=== PATIENT | female | born 1980 | race Caucasian/White ===

== ENCOUNTER 2020-01-09 12:17 | Inpatient (IN) ==
[2020-01-09 12:50] LABS: Basophils % 0.7 %; Eosinophils # 0.2 K/mcL (0.0-0.6); Hematocrit 46.1 % (35.3-44.9); Hemoglobin 15.3 g/dL (11.5-15.4); Immature Granulocytes % 0.2 % (0-4); Lymphocytes # 1.2 K/mcL (0.6-4.6); Lymphocytes % 19.8 %; Mean Corpuscular HGB Conc 33.2 g/dL (31.6-35.5); Mean Corpuscular Hemoglobin 31.4 pg (28.0-33.3); Mean Corpuscular Volume 94.5 fL (83.0-100.0); Mean Platelet Volume 10.8 fL (9.4-12.4); Monocytes # 0.7 K/mcL (0.0-1.3); Monocytes % 12.2 %; Neutrophils # 3.7 K/mcL (1.6-8.9); Platelet Count 149 K/mcL (140-400); Red Blood Count 4.88 M/mcL (3.82-4.97); Red Cell Distribution Width 13.1 % (11.5-14.5); Segmented Neutrophils % 63.1 %; White Blood Count 5.8 K/mcL (4.3-11.1)
[2020-01-09 12:59] LABS: Bilirubin,Urine Small (Negative); Blood,Urine Negative (Negative); Clarity,Urine Clear (Clear); Color,Urine Dark Yellow (Yellow); Glucose,Urine (UA) Normal (Normal); Ketones,Urine Negative (Negative); Leukocyte Esterase,Urine Trace (Negative); Nitrite,Urine Negative (Negative); Protein,Urine 30 mg/dL (Neg-Trace); Specific Gravity,Urine 1.022 (1.010-1.025)
[2020-01-09 12:59] LABS: Prothrombin Time 11.3 Seconds (9.4-12.1)
[2020-01-09 13:12] LABS: RBC,Urine 0-3 per hpf (0-3); Squamous Epithelial Cell,Urine Few per lpf (None-Few); WBC,Urine 0-3 per hpf (0-3)
[2020-01-09 13:12] LABS: Alanine Aminotransferase 415 Units/L (7-52); Albumin 4.2 g/dL (3.5-5.7); Albumin/Globulin Ratio 1.1 (1.1-2.2); Alkaline Phosphatase 113 Units/L (34-104); Aspartate Amino Transferase 577 Units/L (13-39); BUN/Creatinine Ratio 16 (6-26); Bilirubin,Direct 0.5 mg/dL (0.0-0.2); Bilirubin,Indirect 0.9 mg/dL (0.0-1.0); Bilirubin,Total 1.4 mg/dL (0.3-1.0); Blood Urea Nitrogen 8 mg/dL (6-20); Calcium 9.2 mg/dL (8.6-10.3); Carbon Dioxide 25 mEq/L (23-29); Chloride 100 mEq/L (98-107); Globulin 3.9 g/dL (2.4-3.5); Glucose 115 mg/dL (70-105); Lipase 18 Units/L (11-82); Osmolality,Calculated 277 (280-300); Potassium 3.8 mEq/L (3.5-5.1); Sodium 134 mEq/L (136-145); Total Protein 8.1 g/dL (6.4-8.9); Troponin I < 0.03 ng/mL (< 0.04); eGFR For African Americans > 60 (> 60); eGFR For Non-African Americans > 60 (> 60)
[2020-01-09 13:13] LABS: Bacteria,Urine None Seen per hpf (None-Few)
[2020-01-09] MEDS ORDERED: Morphine Sulfate 2 MG/ML SYRINGE IVP ONE ×2 (14:03→21:21)
[2020-01-09] MEDS ORDERED: Ondansetron 4 MG/2 ML VIAL ONE (14:15)
[2020-01-09] MEDS ORDERED: Naloxone 0.4 MG/ML INJ IVP PRN (14:27)
[2020-01-09 14:34] LABS: Hepatitis B Surface Antigen Nonreactive (Nonreactive)
[2020-01-09 15:04] LABS: Hepatitis B Core IgM Nonreactive (Nonreactive)
[2020-01-09 15:05] LABS: Hepatitis A Antibody IgM Nonreactive (Nonreactive)
[2020-01-09 15:13] LABS: Digoxin < 0.3 ng/mL (0.8-2.0)
[2020-01-09] MEDS ORDERED: *HR* LORazepam 2 MG/ML VIAL IVP PRN ×2 (17:08)
[2020-01-09] MEDS ORDERED: Ketorolac 15 MG/ML VIAL IVP PRN (17:09)
[2020-01-09] MEDS ORDERED: Acetylcysteine 8,800 MG in D5% in Water 250 ML IVC ONE (17:30)
[2020-01-09 17:33] LABS: Hepatitis C Virus Antibody Reactive (Nonreactive)
[2020-01-09 17:45] LABS: Acetaminophen < 10 mcg/mL (10-20)
[2020-01-09] MEDS ORDERED: Acetylcysteine 2,900 MG in D5% in Water 500 ML IVC ONE (18:30)
[2020-01-09] MEDS: Thiamine (B-1) 100 MG, Folic Acid 1 MG, MVI, adult with vitamin K 10 ML in 0.9 % Sodi... IVPB SCH (18:58)
[2020-01-09] MEDS: Ondansetron ODT 4 MG TAB.RAPDIS SL PRN (19:53)
[2020-01-09] MEDS ORDERED: *HR* LORazepam 2 MG/ML VIAL IVP ONE (21:23)
[2020-01-09] MEDS ORDERED: Ondansetron 4 MG/2 ML VIAL IVP ONE (21:49)
[2020-01-09] MEDS ORDERED: Acetylcysteine 5,900 MG in D5% in Water 1,000 ML IVC ONE (22:30)
[2020-01-09 23:14] LABS: Alanine Aminotransferase 363 Units/L (7-52); Albumin 3.9 g/dL (3.5-5.7); Albumin/Globulin Ratio 1.1 (1.1-2.2); Alkaline Phosphatase 96 Units/L (34-104); Aspartate Amino Transferase 492 Units/L (13-39); BUN/Creatinine Ratio 16 (6-26); Bilirubin,Total 2.6 mg/dL (0.3-1.0); Blood Urea Nitrogen 8 mg/dL (6-20); Calcium 8.9 mg/dL (8.6-10.3); Carbon Dioxide 24 mEq/L (23-29); Chloride 98 mEq/L (98-107); Globulin 3.4 g/dL (2.4-3.5); Glucose 135 mg/dL (70-105); Osmolality,Calculated 274 (280-300); Potassium 3.1 mEq/L (3.5-5.1); Sodium 132 mEq/L (136-145); Total Protein 7.3 g/dL (6.4-8.9); eGFR For African Americans > 60 (> 60); eGFR For Non-African Americans > 60 (> 60)
[2020-01-09] MEDS: *HR* Heparin 5,000 UNIT/ML VIAL SQ SCH (23:46)
[2020-01-10 01:04] LABS: Basophils % 0.3 %; Eosinophils % 2.2 %; Mean Corpuscular Volume 93.9 fL (83.0-100.0)
[2020-01-10 01:06] LABS: Eosinophils # 0.1 K/mcL (0.0-0.6); Hematocrit 41.3 % (35.3-44.9); Hemoglobin 13.9 g/dL (11.5-15.4); Immature Granulocytes % 0.5 % (0-4); Immature Platelets 7.4 % (1.1-6.1); Lymphocytes # 1.2 K/mcL (0.6-4.6); Lymphocytes % 18.1 %; Mean Corpuscular HGB Conc 33.7 g/dL (31.6-35.5); Mean Corpuscular Hemoglobin 31.6 pg (28.0-33.3); Mean Platelet Volume 11.5 fL (9.4-12.4); Monocytes # 0.8 K/mcL (0.0-1.3); Monocytes % 12.8 %; Neutrophils # 4.2 K/mcL (1.6-8.9); Platelet Count 110 K/mcL (140-400); Red Cell Distribution Width 12.8 % (11.5-14.5); Segmented Neutrophils % 66.1 %; White Blood Count 6.4 K/mcL (4.3-11.1)
[2020-01-10 01:22] LABS: Alanine Aminotransferase 348 Units/L (7-52); Albumin 3.7 g/dL (3.5-5.7); Albumin/Globulin Ratio 1.1 (1.1-2.2); Alkaline Phosphatase 88 Units/L (34-104); Aspartate Amino Transferase 473 Units/L (13-39); BUN/Creatinine Ratio 17 (6-26); Bilirubin,Total 2.4 mg/dL (0.3-1.0); Blood Urea Nitrogen 8 mg/dL (6-20); Calcium 8.8 mg/dL (8.6-10.3); Carbon Dioxide 23 mEq/L (23-29); Chloride 97 mEq/L (98-107); Globulin 3.4 g/dL (2.4-3.5); Glucose 141 mg/dL (70-105); Magnesium 1.5 mg/dL (1.6-2.6); Osmolality,Calculated 271 (280-300); Potassium 3.1 mEq/L (3.5-5.1); Sodium 130 mEq/L (136-145); Total Protein 7.1 g/dL (6.4-8.9); eGFR For African Americans > 60 (> 60); eGFR For Non-African Americans > 60 (> 60)
[2020-01-10] MEDS: Ondansetron ODT 4 MG TAB.RAPDIS SL PRN (04:48)
[2020-01-10] MEDS: *HR* Heparin 5,000 UNIT/ML VIAL SQ SCH ×3 (06:21→20:37)
[2020-01-10] MEDS: Aspirin Enteric Coated 81 MG Tablet PO SCH (08:13)
[2020-01-10] MEDS: Metoprolol 100 MG TABLET PO SCH (08:13)
[2020-01-10] MEDS: *HR* LORazepam 2 MG/ML VIAL IVP PRN ×3 (08:22→20:52)
[2020-01-10 13:59] LABS: % Iron Saturation 96 % (15-50); Iron 344 mcg/dL (50-170); Transferrin 256 mg/dL (203-362)
[2020-01-10 14:17] LABS: Ferritin 982 ng/mL (10-120)
[2020-01-10] MEDS: Thiamine (B-1) 100 MG, Folic Acid 1 MG, MVI, adult with vitamin K 10 ML in 0.9 % Sodi... IVPB SCH (17:09)
[2020-01-10] MEDS: *HR* OxyCODONE Immed Rel 5 MG TABLET PO PRN ×2 (18:08→22:08)
[2020-01-10] MEDS: Magnesium Oxide 400 MG TABLET PO SCH (20:40)
[2020-01-10] MEDS: Nicotine 2 MG GUM BC PRN ×2 (20:40→23:58)
[2020-01-11] MEDS: *HR* LORazepam 2 MG/ML VIAL IVP PRN ×3 (00:52→20:31)
[2020-01-11 04:58] LABS: Hematocrit 37.8 % (35.3-44.9); Hemoglobin 12.1 g/dL (11.5-15.4); Immature Platelets 8.4 % (1.1-6.1); Mean Corpuscular Hemoglobin 31.2 pg (28.0-33.3); Mean Corpuscular Volume 97.4 fL (83.0-100.0); Mean Platelet Volume 11.6 fL (9.4-12.4); Red Blood Count 3.88 M/mcL (3.82-4.97); Red Cell Distribution Width 12.9 % (11.5-14.5); White Blood Count 4.3 K/mcL (4.3-11.1)
[2020-01-11] MEDS: *HR* Heparin 5,000 UNIT/ML VIAL SQ SCH ×3 (05:00→20:41)
[2020-01-11 05:21] LABS: Alanine Aminotransferase 331 Units/L (7-52); Albumin 3.5 g/dL (3.5-5.7); Albumin/Globulin Ratio 1.3 (1.1-2.2); Alkaline Phosphatase 79 Units/L (34-104); Aspartate Amino Transferase 544 Units/L (13-39); BUN/Creatinine Ratio 17 (6-26); Bilirubin,Total 3.2 mg/dL (0.3-1.0); Blood Urea Nitrogen 8 mg/dL (6-20); Calcium 8.6 mg/dL (8.6-10.3); Carbon Dioxide 27 mEq/L (23-29); Chloride 103 mEq/L (98-107); Globulin 2.7 g/dL (2.4-3.5); Glucose 82 mg/dL (70-105); Magnesium 1.8 mg/dL (1.6-2.6); Osmolality,Calculated 273 (280-300); Potassium 4.2 mEq/L (3.5-5.1); Sodium 133 mEq/L (136-145); Total Protein 6.2 g/dL (6.4-8.9); eGFR For African Americans > 60 (> 60); eGFR For Non-African Americans > 60 (> 60)
[2020-01-11] MEDS: Metoprolol 100 MG TABLET PO SCH (08:12)
[2020-01-11] MEDS: Aspirin Enteric Coated 81 MG Tablet PO SCH (08:16)
[2020-01-11] MEDS: *HR* OxyCODONE Immed Rel 5 MG TABLET PO PRN ×4 (08:17→23:01)
[2020-01-11] MEDS: Magnesium Oxide 400 MG TABLET PO SCH ×2 (08:17→19:59)
[2020-01-11] MEDS: Ondansetron ODT 4 MG TAB.RAPDIS SL PRN (10:55)
[2020-01-11] MEDS ORDERED: Lidocaine -MPF 2% 2 ML VIAL ONE (12:31)
[2020-01-11] MEDS ORDERED: *HR* Propofol 200 MG/20 ML VIAL IVP ONE ×2 (12:31→13:09)
[2020-01-11] MEDS ORDERED: *HR* Promethazine 25 MG/ML VIAL IVP STA (12:38)
[2020-01-11] MEDS ORDERED: Famotidine 20 MG/2 ML VIAL ONE (13:13)
[2020-01-11] MEDS: Thiamine (B-1) 100 MG, Folic Acid 1 MG, MVI, adult with vitamin K 10 ML in 0.9 % Sodi... IVPB SCH (18:20)
[2020-01-11] MEDS: Nicotine 2 MG GUM BC PRN (23:01)
[2020-01-12] MEDS: *HR* LORazepam 2 MG/ML VIAL IVP PRN ×2 (01:57→10:35)
[2020-01-12 03:38] LABS: Albumin 3.5 g/dL (3.5-5.7); Albumin/Globulin Ratio 1.2 (1.1-2.2); Bilirubin,Direct 1.5 mg/dL (0.0-0.2); Bilirubin,Total 2.5 mg/dL (0.3-1.0); Globulin 2.9 g/dL (2.4-3.5); Total Protein 6.4 g/dL (6.4-8.9)
[2020-01-12] MEDS: *HR* OxyCODONE Immed Rel 5 MG TABLET PO PRN ×2 (03:40→07:56)
[2020-01-12] MEDS: *HR* Heparin 5,000 UNIT/ML VIAL SQ SCH (06:08)
[2020-01-12] MEDS: Aspirin Enteric Coated 81 MG Tablet PO SCH (07:54)
[2020-01-12] MEDS: Metoprolol 100 MG TABLET PO SCH (07:55)
[2020-01-12] MEDS: Magnesium Oxide 400 MG TABLET PO SCH (07:56)
[2020-01-12] MEDS: Ondansetron ODT 4 MG TAB.RAPDIS SL PRN (07:57)
[2020-01-12] MEDS: Nicotine 2 MG GUM BC PRN (09:51)
[2020-01-12 11:10] VITALS: BP 100/64
[2020-01-12 11:11] LABS: AFP Tumor Marker Non-Pregnant 19 ng/mL (0-9)
[2020-01-12 11:17] LABS: ANA IgG by ELISA NONE DETECTED (None Detected); F-Actin (sm muscle) Ab IgG 30 Units (0-19); Immunoglobulin A (CELIAC) 346 mg/dL (68-408)
[2020-01-13 08:38] LABS: Smooth Muscle Ab Titer IgG 1:20 (<1:20)
[2020-01-13 11:04] LABS: Tissue Transglutaminase IgA <2 U/mL (0-3)
[2020-01-13 11:04] LABS: HCV Quant Interpretation DETECTED (Not Detected); HCV Quant Log 6.07 log IU/mL
[2020-01-15 13:20] LABS: HCV Genotype by Sequencing 1A OR 1B
[2020-01-15 13:22] LABS: HCV Quant Interpretation DETECTED (Not Detected); HCV Quant Log 6.22 log IU/mL
[2020-01-17 14:32] LABS: A1A SZ Specimen WHOLE BLOOD; Alpha-1-Antitrypsin S Allele NEGATIVE; Alpha-1-Antitrypsin Z Allele NEGATIVE
[2020-01-17 14:38] LABS: Alpha-1-Antitrypsin 168 mg/dL (90-200)
== END 2020-01-12 13:33 | disposition home or self-care (01) | DRG 433 ==
LOC: EMEROOARM 12:17 → 3BNU 12:17
PROVIDERS: ADMIT Internal Medicine; ATTEND Internal Medicine
PROC: ENDOEBX (2020-01-11 13:00)

== ENCOUNTER 2020-06-23 09:53 | Inpatient (IN) ==
[2020-06-23] MEDS ORDERED: Naloxone 0.4 MG/ML INJ IVP PRN (13:18)
[2020-06-23] MEDS ORDERED: *HR* Promethazine 25 MG/ML VIAL IM PRN (13:38)
[2020-06-23 14:09] LABS: Hemoglobin 13.3 g/dL (11.5-15.4)
[2020-06-23 14:11] LABS: Basophils # 0.1 K/mcL (0.0-0.2); Basophils % 0.9 %; Eosinophils # 0.2 K/mcL (0.0-0.6); Eosinophils % 4.3 %; Hematocrit 40.1 % (35.3-44.9); Immature Granulocytes % 0.4 % (0-4); Immature Platelets 6.2 % (1.1-6.1); Lymphocytes # 1.3 K/mcL (0.6-4.6); Lymphocytes % 22.8 %; Mean Corpuscular HGB Conc 33.2 g/dL (31.6-35.5); Mean Corpuscular Hemoglobin 30.9 pg (28.0-33.3); Mean Platelet Volume 10.9 fL (9.4-12.4); Monocytes # 0.7 K/mcL (0.0-1.3); Monocytes % 11.6 %; Neutrophils # 3.4 K/mcL (1.6-8.9); Platelet Count 133 K/mcL (140-400); Red Blood Count 4.31 M/mcL (3.82-4.97); Red Cell Distribution Width 13.7 % (11.5-14.5); White Blood Count 5.6 K/mcL (4.3-11.1)
[2020-06-23 14:31] LABS: Alanine Aminotransferase 206 Units/L (7-52); Albumin 3.8 g/dL (3.5-5.7); Albumin/Globulin Ratio 1.2 (1.1-2.2); Alkaline Phosphatase 87 Units/L (34-104); Aspartate Amino Transferase 205 Units/L (13-39); BUN/Creatinine Ratio 14 (6-26); Bilirubin,Total 0.6 mg/dL (0.3-1.0); Blood Urea Nitrogen 7 mg/dL (6-20); Calcium 8.4 mg/dL (8.6-10.3); Carbon Dioxide 20 mEq/L (23-29); Chloride 109 mEq/L (98-107); Globulin 3.2 g/dL (2.4-3.5); Glucose 86 mg/dL (70-105); Magnesium 1.8 mg/dL (1.6-2.6); Osmolality,Calculated 281 (280-300); Phosphorous 2.8 mg/dL (2.7-4.5); Potassium 3.8 mEq/L (3.5-5.1); Sodium 137 mEq/L (136-145); eGFR For African Americans > 60 (> 60); eGFR For Non-African Americans > 60 (> 60)
[2020-06-23] MEDS: 0.9 % Sodium Chloride 1,000 ML IVC SCH (14:41)
[2020-06-23] MEDS ORDERED: Torsemide 20 MG TABLET PO SCH (18:00)
[2020-06-23] MEDS: Metoprolol 100 MG TABLET PO SCH (20:40)
[2020-06-24] MEDS: 0.9 % Sodium Chloride 1,000 ML IVC SCH (03:16)
[2020-06-24 06:01] LABS: Basophils # 0.1 K/mcL (0.0-0.2); Eosinophils # 0.2 K/mcL (0.0-0.6); Hematocrit 40.8 % (35.3-44.9); Hemoglobin 13.4 g/dL (11.5-15.4); Immature Granulocytes % 0.2 % (0-4); Lymphocytes # 1.4 K/mcL (0.6-4.6); Lymphocytes % 28.5 %; Mean Corpuscular HGB Conc 32.8 g/dL (31.6-35.5); Mean Corpuscular Hemoglobin 31.5 pg (28.0-33.3); Mean Platelet Volume 10.6 fL (9.4-12.4); Monocytes # 0.5 K/mcL (0.0-1.3); Monocytes % 9.8 %; Neutrophils # 2.7 K/mcL (1.6-8.9); Platelet Count 142 K/mcL (140-400); Red Blood Count 4.25 M/mcL (3.82-4.97); Red Cell Distribution Width 13.8 % (11.5-14.5); Segmented Neutrophils % 55.5 %; White Blood Count 4.8 K/mcL (4.3-11.1)
[2020-06-24 06:22] LABS: Alanine Aminotransferase 190 Units/L (7-52); Albumin 3.6 g/dL (3.5-5.7); Albumin/Globulin Ratio 1.1 (1.1-2.2); Alkaline Phosphatase 90 Units/L (34-104); Aspartate Amino Transferase 194 Units/L (13-39); BUN/Creatinine Ratio 14 (6-26); Bilirubin,Total 0.9 mg/dL (0.3-1.0); Blood Urea Nitrogen 7 mg/dL (6-20); Calcium 8.6 mg/dL (8.6-10.3); Carbon Dioxide 23 mEq/L (23-29); Chloride 107 mEq/L (98-107); Globulin 3.2 g/dL (2.4-3.5); Glucose 78 mg/dL (70-105); Osmolality,Calculated 281 (280-300); Potassium 4.2 mEq/L (3.5-5.1); Sodium 137 mEq/L (136-145); Total Protein 6.8 g/dL (6.4-8.9); eGFR For African Americans > 60 (> 60); eGFR For Non-African Americans > 60 (> 60)
[2020-06-24] MEDS: Metoprolol 100 MG TABLET PO SCH ×2 (07:55→20:25)
[2020-06-24] MEDS: Torsemide 20 MG TABLET PO SCH (08:01)
[2020-06-24] MEDS: Ondansetron ODT 4 MG TAB.RAPDIS SL PRN (08:51)
[2020-06-24] MEDS ORDERED: Piperacillin/Tazobactam 3.375 GM in 0.9 % Sodium Chloride Mini Bag 100 ML IVPB SCH ×2 (13:00→19:00)
[2020-06-24] MEDS: Pantoprazole 40 MG VIAL IVP SCH (13:07)
[2020-06-24 19:16] LABS: Adenovirus Not Detected (Not Detect); Bordetella Pertussis Not Detected (Not Detect); Chlamydophila pneumoniae Not Detected (Not Detect); Coronavirus 229E Not Detected (Not Detect); Coronavirus HKU1 Not Detected (Not Detect); Coronavirus NL63 Not Detected (Not Detect); Coronavirus OC43 Not Detected (Not Detect); Human Metapneumovirus Not Detected (Not Detect); Human Rhinovirus/Enterovirus DETECTED (Not Detect); Influenza A Subtype 2009 H1 Not Detected (Not Detect); Influenza B Not Detected (Not Detect); Mycoplasma pneumoniae Not Detected (Not Detect); Parainfluenza Virus 1 Not Detected (Not Detect); Parainfluenza Virus 2 Not Detected (Not Detect); Parainfluenza Virus 3 Not Detected (Not Detect); Parainfluenza Virus 4 Not Detected (Not Detect); Respiratory Syncytial Virus Not Detected (Not Detect); SARS-CoV-2 Not Detected (Not Detect)
[2020-06-25] MEDS: Metoprolol 100 MG TABLET PO SCH ×2 (08:15→20:28)
[2020-06-25] MEDS: Pantoprazole 40 MG VIAL IVP SCH (08:16)
[2020-06-25] MEDS: Ondansetron ODT 4 MG TAB.RAPDIS SL PRN (08:20)
[2020-06-26 06:46] LABS: Basophils % 0.5 %; Eosinophils # 0.2 K/mcL (0.0-0.6); Eosinophils % 4.9 %; Hematocrit 40.3 % (35.3-44.9); Hemoglobin 13.3 g/dL (11.5-15.4); Immature Granulocytes % 0.5 % (0-4); Lymphocytes # 1.4 K/mcL (0.6-4.6); Lymphocytes % 33.4 %; Mean Corpuscular Hemoglobin 31.1 pg (28.0-33.3); Mean Corpuscular Volume 94.4 fL (83.0-100.0); Mean Platelet Volume 10.8 fL (9.4-12.4); Monocytes # 0.5 K/mcL (0.0-1.3); Monocytes % 12.4 %; Neutrophils # 2.1 K/mcL (1.6-8.9); Platelet Count 162 K/mcL (140-400); Red Blood Count 4.27 M/mcL (3.82-4.97); Red Cell Distribution Width 13.6 % (11.5-14.5); Segmented Neutrophils % 48.3 %; White Blood Count 4.3 K/mcL (4.3-11.1)
[2020-06-26 07:02] LABS: BUN/Creatinine Ratio 16 (6-26); Blood Urea Nitrogen 10 mg/dL (6-20); Carbon Dioxide 27 mEq/L (23-29); Chloride 105 mEq/L (98-107); Glucose 64 mg/dL (70-105); Magnesium 1.8 mg/dL (1.6-2.6); Osmolality,Calculated 283 (280-300); Potassium 3.9 mEq/L (3.5-5.1); Sodium 138 mEq/L (136-145); eGFR For African Americans > 60 (> 60); eGFR For Non-African Americans > 60 (> 60)
[2020-06-26] MEDS: Pantoprazole 40 MG VIAL IVP SCH (07:43)
[2020-06-26] MEDS: Ondansetron ODT 4 MG TAB.RAPDIS SL PRN (07:43)
[2020-06-26] MEDS: Torsemide 20 MG TABLET PO SCH (07:44)
[2020-06-26] MEDS: Metoprolol 100 MG TABLET PO SCH (07:44)
[2020-06-26 11:02] VITALS: BP 121/71
== END 2020-06-26 12:08 | disposition home or self-care (01) | DRG 392 ==
LOC: 3ANU → SUATTDRO 12:43
PROVIDERS: ADMIT Family Medicine; ATTEND Internal Medicine
PROC: ENDOEBX (2020-06-25 13:00)